=== PATIENT | female | born 1955 | race Caucasian/White ===

== ENCOUNTER → 2016-10-11 | Outpatient (REF) | payer MEDICARE, MEDICAID ==
[~2016-10-11] MED LIST: ASPI81TA83 OR; IBUP800T OR; ROSU10TA OR; VICO5TAB OR
[2016-10-11 14:03] LABS: ALBUMIN 3.7 GM/DL (3.2-5.2); ALBUMIN/GLOBULIN RATIO 1.19 (1.00-1.93); ALKALINE PHOSPHATASE 103 U/L (45-117); ALT/SGPT 41 U/L (12-78); ANION GAP 8 MEQ/L (8-16); AST/SGOT 18 U/L (15-37); BILIRUBIN,TOTAL 0.5 MG/DL (0.2-1.0); BLOOD UREA NITROGEN 18 MG/DL (7-18); CALCIUM LEVEL 9.1 MG/DL (8.8-10.2); CARBON DIOXIDE LEVEL 30 MEQ/L (21-32); CHLORIDE LEVEL 105 MEQ/L (98-107); CREATININE FOR GFR 0.74 MG/DL (0.55-1.02); GLOMERULAR FILTRATION RATE > 60.0 (>45); GLUCOSE, FASTING 164 MG/DL (80-110); POTASSIUM SERUM 4.1 MEQ/L (3.5-5.1); SODIUM LEVEL 143 MEQ/L (136-145); TOTAL PROTEIN 6.8 GM/DL (6.4-8.2)
== END ==
LOC: M LABDRAW1 13:31
PROVIDERS: ATTEND Family Medicine
DX: R19.5 Other fecal abnormalities (principal); E11.9 Type 2 diabetes mellitus without complications
CPT/HCPCS: 36415; 80053; 82043; G0463

== ENCOUNTER → 2016-12-13 | Outpatient (REF) | payer MEDICARE, MEDICAID | LOC: M SFHCPLAZ 08:16 | PROVIDERS: ATTEND Family Medicine | DX: E11.9 Type 2 diabetes mellitus without complications (principal) ==

== ENCOUNTER → 2017-04-04 | Outpatient (REF) | payer MEDICARE, MEDICAID | LOC: M SFHCPLAZ 08:19 | PROVIDERS: ATTEND Family Medicine | DX: E11.9 Type 2 diabetes mellitus without complications (principal) ==

== ENCOUNTER → 2017-04-11 | Outpatient (REF) | payer MEDICARE, MEDICAID | LOC: M SFHCPLAZ 08:19 | PROVIDERS: ATTEND Family Medicine | DX: R53.83 Other fatigue (principal); E11.9 Type 2 diabetes mellitus without complications; R03.0 Elevated blood-pressure reading, without diagnosis of hypertension; R23.4 Changes in skin texture; Z79.4 Long term (current) use of insulin; Z79.84 Long term (current) use of oral hypoglycemic drugs | CPT/HCPCS: 36415; 82306; G0463 ==

== ENCOUNTER → 2017-07-24 | Outpatient (REF) | payer MEDICARE, MEDICAID | LOC: M SFHCPLAZ 08:21 | PROVIDERS: ATTEND Family Medicine | DX: R53.82 Chronic fatigue, unspecified (principal) | CPT/HCPCS: 36415; 82607; G0463 ==

== ENCOUNTER → 2017-11-07 | Outpatient (REF) | payer MEDICARE, MEDICAID ==
[2017-11-07 12:40] LABS: HEMATOCRIT 47.5 % (36.0-47.0); HEMOGLOBIN 14.7 g/dl (12.0-16.0); MEAN CORPUSCULAR HEMOGLOBIN 28.9 pg (27.0-33.0); MEAN CORPUSCULAR HGB CONC 30.9 g/dl (32.0-36.5); MEAN CORPUSCULAR VOLUME 93.5 fl (80.0-96.0); PLATELET COUNT, AUTOMATED 231 10^3/uL (150-450); RED BLOOD COUNT 5.08 10^6/uL (4.00-5.40); RED CELL DISTRIBUTION WIDTH 13.2 % (11.5-14.5); WHITE BLOOD COUNT 11.3 10^3/uL (4.0-10.0)
[2017-11-07 12:44] LABS: ALBUMIN 3.8 GM/DL (3.2-5.2); ALBUMIN/GLOBULIN RATIO 1.12 (1.00-1.93); ALKALINE PHOSPHATASE 100 U/L (45-117); ALT/SGPT 40 U/L (12-78); ANION GAP 6 MEQ/L (8-16); AST/SGOT 18 U/L (7-37); BILIRUBIN,TOTAL 0.4 MG/DL (0.2-1.0); BLOOD UREA NITROGEN 15 MG/DL (7-18); CARBON DIOXIDE LEVEL 30 MEQ/L (21-32); CHLORIDE LEVEL 106 MEQ/L (98-107); CREATININE FOR GFR 0.76 MG/DL (0.55-1.30); GLOMERULAR FILTRATION RATE > 60.0 (>45); GLUCOSE, FASTING 193 MG/DL (70-100); POTASSIUM SERUM 4.5 MEQ/L (3.5-5.1); SODIUM LEVEL 142 MEQ/L (136-145); TOTAL PROTEIN 7.2 GM/DL (6.4-8.2)
[2017-11-07 12:49] LABS: ESTIMATED AVERAGE GLUCOSE 163 MG/DL (60-110); HEMOGLOBIN A1c 7.3 %
[2017-11-07 12:55] LABS: INR 0.86; PROTHROMBIN TIME 11.8 SECONDS (12.4-14.5)
[2017-11-07 13:19] LABS: CREATININE, URINE 56.6 MG/DL; MALB URINE SIEMENS 43.5 MG/L; MAU/CREAT RATIO 76.8 MCG/MG (0.0-30.0)
== END ==
LOC: M SFHCPLAZ 08:50
DX: Z78.9 Other specified health status (principal); E11.9 Type 2 diabetes mellitus without complications; Z79.01 Long term (current) use of anticoagulants
CPT/HCPCS: 80053

== ENCOUNTER → 2017-12-11 | Outpatient (REF) | payer MEDICARE, MEDICAID ==
[2017-12-11 12:49] LABS: CREATININE, URINE 29.7 MG/DL; MALB URINE SIEMENS 31.2 MG/L
== END ==
LOC: M SFHCPLAZ 08:24
DX: R80.9 Proteinuria, unspecified (principal)
CPT/HCPCS: 82043

== ENCOUNTER → 2018-01-16 | Outpatient (CLI) | payer MEDICARE, MEDICAID | LOC: M RAD 10:44 | DX: M79.622 Pain in left upper arm (principal) | CPT/HCPCS: 73030 ==

== ENCOUNTER → 2018-02-04 | Outpatient (REF) | payer MEDICARE, MEDICAID ==
[2018-02-04 14:22] LABS: ANION GAP 8 MEQ/L (8-16); BLOOD UREA NITROGEN 21 MG/DL (7-18); CALCIUM LEVEL 9.1 MG/DL (8.8-10.2); CARBON DIOXIDE LEVEL 27 MEQ/L (21-32); CHLORIDE LEVEL 104 MEQ/L (98-107); CREATININE FOR GFR 0.86 MG/DL (0.55-1.30); GLOMERULAR FILTRATION RATE > 60.0 (>45); GLUCOSE, FASTING 214 MG/DL (70-100); POTASSIUM SERUM 4.8 MEQ/L (3.5-5.1); SODIUM LEVEL 139 MEQ/L (136-145)
[2018-02-04 14:23] LABS: ESTIMATED AVERAGE GLUCOSE 189 MG/DL (60-110); HEMOGLOBIN A1c 8.2 %
== END ==
LOC: M SFHCPLAZ 08:28
DX: E11.9 Type 2 diabetes mellitus without complications (principal); I10 Essential (primary) hypertension
CPT/HCPCS: 83036

== ENCOUNTER 2018-02-17 08:56 | Outpatient (RCR) | payer MEDICARE, MEDICAID | END 2018-03-14 | LOC: M PT 08:56 | DX: Z51.89 Encounter for other specified aftercare (principal); M25.512 Pain in left shoulder | CPT/HCPCS: 97110; 97140 ==

== ENCOUNTER → 2018-02-20 | Outpatient (REF) | payer MEDICARE, MEDICAID ==
[2018-02-20 11:18] LABS: ANION GAP 8 MEQ/L (8-16); BLOOD UREA NITROGEN 16 MG/DL (7-18); CALCIUM LEVEL 9.1 MG/DL (8.8-10.2); CARBON DIOXIDE LEVEL 27 MEQ/L (21-32); CHLORIDE LEVEL 106 MEQ/L (98-107); CREATININE FOR GFR 0.87 MG/DL (0.55-1.30); GLOMERULAR FILTRATION RATE > 60.0 (>45); GLUCOSE, FASTING 175 MG/DL (70-100); POTASSIUM SERUM 4.7 MEQ/L (3.5-5.1); SODIUM LEVEL 141 MEQ/L (136-145)
== END ==
LOC: M SFHCPLAZ 08:04
DX: E11.9 Type 2 diabetes mellitus without complications (principal)
CPT/HCPCS: 80048

== ENCOUNTER 2018-04-04 23:07 | Emergency (ER) | payer MEDICARE, MEDICAID ==
[2018-04-04] MEDS ORDERED: ADENOSINE 6MG/2ML INJECTION (J0153) As Ordered ×2 (23:13→23:18)
[2018-04-04] MEDS ORDERED: METOPROLOL 5 MG/5 ML VIAL As Ordered (23:17)
[2018-04-04] MEDS: ADENOSINE 6MG/2ML INJECTION (J0153) IV ×2 (23:17→23:20)
[2018-04-04] MEDS: ONDANSETRON 4MG/2ML VIAL (J2405) IV ×2 (23:21→23:45)
[2018-04-04] MEDS: NS 1,000 ML IV (23:22)
[2018-04-04] MEDS: METOPROLOL 5 MG/5 ML VIAL IV (23:22)
[2018-04-04] MEDS ORDERED: MORPHINE 2 MG/ML 1ML SYRINGE (J2270) As Ordered (23:29)
[2018-04-04] MEDS ORDERED: ONDANSETRON 4MG/2ML VIAL (J2405) As Ordered (23:31)
[2018-04-04] MEDS: MORPHINE 2 MG/ML 1ML SYRINGE (J2270) IV (23:35)
[2018-04-04] MEDS: CLOPIDOGREL 300 MG TAB (PLAVIX) PO (23:40)
[2018-04-04] MEDS: HEPARIN SOD (PORCINE) 5000 UNITS/ML VIAL IV (23:40)
[2018-04-04] MEDS: ASPIRIN 81 MG CHEW TABLET PO (23:45)
[2018-04-04] MEDS ORDERED: MORPHINE 2 MG/ML 1ML SYRINGE (J2270) IV (23:45)
[2018-04-04] MEDS: TENECTEPLASE 50 MG KIT (TNKase)(J3101) IV (23:48)
[2018-04-04 23:52] LABS: INR 0.95; PROTHROMBIN TIME 12.8 SECONDS (12.1-14.4)
[2018-04-04] MEDS: HEPARIN DRIP 25,000 UNITS in APPROPRIATE DILUENT 1 EA IV (23:52)
[2018-04-04 23:53] LABS: PARTIAL THROMBOPLASTIN TIME 26.5 SECONDS (25.4-37.6)
[2018-04-04] MEDS ORDERED: dexameTHASONE 20 MG/5 ML VIAL (J1100) As Ordered (23:59)
[2018-04-04] MEDS ORDERED: diphenhydrAMINE INJ 50MG/ML VIAL (J1200) As Ordered (23:59)
[2018-04-05] MEDS: diphenhydrAMINE INJ 50MG/ML VIAL (J1200) IV (00:02)
[2018-04-05] MEDS: dexameTHASONE 20 MG/5 ML VIAL (J1100) IV (00:03)
[2018-04-05 00:11] LABS: HEMATOCRIT 54.3 % (36.0-47.0); HEMOGLOBIN 17.2 g/dl (12.0-15.5); MEAN CORPUSCULAR HEMOGLOBIN 29.4 pg (27.0-33.0); MEAN CORPUSCULAR HGB CONC 31.7 g/dl (32.0-36.5); MEAN CORPUSCULAR VOLUME 92.7 fl (80.0-96.0); PLATELET COUNT, AUTOMATED 285 10^3/uL (150-450); RED BLOOD COUNT 5.86 10^6/uL (4.00-5.40); RED CELL DISTRIBUTION WIDTH 13.2 % (11.5-14.5)
[2018-04-05 00:16] LABS: ADD MANUAL DIFFER YES; DIFF SLIDE NUMBER 163; POSITIVE DIFF POS FLAG; WHITE BLOOD COUNT 12.7 10^3/uL (4.0-10.0)
[2018-04-05 00:32] LABS: LYMPHOCYTES 45 % (16-52); MONOCYTES 5 % (0-8); NEUTROPHILS 50 % (35-75); PLATELET ESTIMATE NORMAL (NORMAL)
[2018-04-05] MEDS ORDERED: ISOVUE-370 76% 100ML VIAL (Q9967) As Ordered (00:34)
[2018-04-05] MEDS: NOREPINEPHRINE BITARTRATE 8 MG in D5W 492 ML IV ×3 (00:45→01:42)
[2018-04-05] MEDS ORDERED: NOREPINEPHRINE BITARTRATE 8 MG in D5W 492 ML IV (00:45)
[2018-04-05 01:27] LABS: BLOOD UREA NITROGEN 18 MG/DL (7-18); CREATININE FOR GFR 1.39 MG/DL (0.55-1.30); GLOMERULAR FILTRATION RATE 40.8 (>45); GLUCOSE, FASTING 434 MG/DL (70-100)
[2018-04-05 01:28] LABS: ANION GAP 12 MEQ/L (8-16); CALCIUM LEVEL 8.2 MG/DL (8.8-10.2); CARBON DIOXIDE LEVEL 22 MEQ/L (21-32); CHLORIDE LEVEL 104 MEQ/L (98-107); CK-MB VALUE MASS 16.1 NG/ML (<3.6); CPK CREATINE PHOSPHOKINASE 240 U/L (26-192); POTASSIUM SERUM 4.5 MEQ/L (3.5-5.1); SODIUM LEVEL 138 MEQ/L (136-145)
[2018-04-05 01:29] LABS: TROPONIN I 2.74 NG/ML (< 0.10)
[2018-04-05] MEDS: HumuLIN R (REGULAR) INSULIN (NovoLIN R) **100U/ML** PER UNIT IV (01:44)
[2018-04-05 02:01] LABS: BEDSIDE GLUCOSE 451 MG/DL (80-115)
[2018-04-05] MEDS ORDERED: METAL LOCK LOOP XX (02:14)
== END 2018-04-05 02:53 | disposition short-term general hospital (02) ==
LOC: M ED 23:07
DX: I21.3 ST elevation (STEMI) myocardial infarction of unspecified site (principal); I47.1 Supraventricular tachycardia; R06.02 Shortness of breath; E11.9 Type 2 diabetes mellitus without complications; I10 Essential (primary) hypertension; Z88.8 Allergy status to other drugs, medicaments and biological substances; Z88.2 Allergy status to sulfonamides; Z79.899 Other long term (current) drug therapy; Z79.82 Long term (current) use of aspirin; Z79.84 Long term (current) use of oral hypoglycemic drugs
CPT/HCPCS: J1200

== ENCOUNTER 2018-05-12 08:48 | Emergency (ER) | payer MEDICARE, MEDICAID ==
[2018-05-12 10:00] LABS: BASO # 0.1 10^3/uL (0.0-0.2); BASO % 0.7 % (0.0-1.0); EOS # 0.4 10^3/uL (0.0-0.50); EOS % 4.6 % (0.0-3.0); HEMATOCRIT 41.4 % (36.0-47.0); HEMOGLOBIN 13.2 g/dl (12.0-15.5); IMMATURE GRANULOCYTE % 0.2 % (0-3.0); LYMPH # 2.4 10^3/uL (1.5-4.5); LYMPH % 25.5 % (24.0-44.0); MEAN CORPUSCULAR HEMOGLOBIN 28.9 pg (27.0-33.0); MEAN CORPUSCULAR HGB CONC 31.9 g/dl (32.0-36.5); MEAN CORPUSCULAR VOLUME 90.8 fl (80.0-96.0); MONO # 0.6 10^3/uL (0.0-0.8); MONO % 6.8 % (0.0-5.0); NEUTROPHILS # 5.9 10^3/uL (1.8-7.7); NEUTROPHILS % 62.2 % (36.0-66.0); PLATELET COUNT, AUTOMATED 201 10^3/uL (150-450); RED BLOOD COUNT 4.56 10^6/uL (4.00-5.40); RED CELL DISTRIBUTION WIDTH 13.3 % (11.5-14.5); WHITE BLOOD COUNT 9.5 10^3/uL (4.0-10.0)
[2018-05-12 10:04] LABS: INR 0.96; PROTHROMBIN TIME 12.9 SECONDS (12.1-14.4)
[2018-05-12 10:11] LABS: ALBUMIN 3.5 GM/DL (3.2-5.2); ALBUMIN/GLOBULIN RATIO 1.03 (1.00-1.93); ALKALINE PHOSPHATASE 101 U/L (45-117); ALT/SGPT 40 U/L (12-78); ANION GAP 8 MEQ/L (8-16); AST/SGOT 16 U/L (7-37); BILIRUBIN,DIRECT 0.1 MG/DL (0.0-0.2); BILIRUBIN,TOTAL 0.5 MG/DL (0.2-1.0); BLOOD UREA NITROGEN 15 MG/DL (7-18); CALCIUM LEVEL 8.9 MG/DL (8.8-10.2); CARBON DIOXIDE LEVEL 28 MEQ/L (21-32); CHLORIDE LEVEL 107 MEQ/L (98-107); CPK CREATINE PHOSPHOKINASE 100 U/L (26-192); CREATININE FOR GFR 0.67 MG/DL (0.55-1.30); GLOMERULAR FILTRATION RATE > 60.0 (>45); GLUCOSE, FASTING 175 MG/DL (70-100); LIPASE 72 U/L (73-393); POTASSIUM SERUM 4.2 MEQ/L (3.5-5.1); SODIUM LEVEL 143 MEQ/L (136-145); TOTAL PROTEIN 6.9 GM/DL (6.4-8.2); TROPONIN I < 0.02 NG/ML (< 0.10)
[2018-05-12 10:17] LABS: NT-PRO BNP 761 PG/ML (<125)
[2018-05-12] MEDS: ONDANSETRON 4MG/2ML VIAL (J2405) IV (10:29)
[2018-05-12] MEDS: MORPHINE 4 MG/ML 1ML VIAL/SYRINGE (J2270) IV (10:30)
[2018-05-12] MEDS ORDERED: METAL LOCK LOOP XX (11:18)
[2018-05-12 15:35] LABS: CPK CREATINE PHOSPHOKINASE 92 U/L (26-192); TROPONIN I < 0.02 NG/ML (< 0.10)
[2018-05-12 15:36] LABS: CK-MB VALUE MASS 2.1 NG/ML (<3.6); MB/CK RELATIVE INDEX 2.28 (< OR =4)
== END 2018-05-12 16:03 | disposition home or self-care (01) ==
LOC: M ED 08:48
DX: R07.89 Other chest pain (principal); R05 Cough; R11.0 Nausea; E11.9 Type 2 diabetes mellitus without complications; I10 Essential (primary) hypertension; I25.2 Old myocardial infarction; Z88.2 Allergy status to sulfonamides; Z88.5 Allergy status to narcotic agent; Z88.8 Allergy status to other drugs, medicaments and biological substances; F17.210 Nicotine dependence, cigarettes, uncomplicated
CPT/HCPCS: J2405

== ENCOUNTER → 2018-11-16 | Outpatient (REF) | payer MEDICARE, MEDICAID ==
[~2018-11-16] MED LIST changes: -ASPI81TA83 OR; +ASPI81TA83 PO; +GLIP10TA18 PO; -IBUP800T OR; +IBUP800T PO; +LISI10TA4 PO; +PATIENT COMMENTS; +PRAS10TA2; +SITA50TAB PO; -VICO5TAB OR; +VICO5TAB PO
[2018-11-16 13:34] LABS: CREATININE, URINE 56.8 MG/DL; MALB URINE SIEMENS 23.8 MG/L; MAU/CREAT RATIO 41.9 MCG/MG (0.0-30.0)
[2018-11-16 13:43] LABS: ALBUMIN 3.6 GM/DL (3.2-5.2); ALT/SGPT 40 U/L (12-78); BILIRUBIN,TOTAL 0.6 MG/DL (0.2-1.0); BLOOD UREA NITROGEN 11 MG/DL (7-18); CALCIUM LEVEL 8.5 MG/DL (8.8-10.2); CARBON DIOXIDE LEVEL 23 MEQ/L (21-32); CHLORIDE LEVEL 109 MEQ/L (98-107); CHOLESTEROL LEVEL 141 MG/DL (<200); CREATININE FOR GFR 0.69 MG/DL (0.55-1.30); GLOMERULAR FILTRATION RATE > 60.0 (>45); GLUCOSE, FASTING 158 MG/DL (70-100); HDL CHOLESTEROL 38 MG/DL (>40); HEMOGLOBIN A1c 7.9 %; LDL CHOLESTEROL 77 MG/DL (<100); NON-HDL-C 103 MG/DL; POTASSIUM SERUM 4.1 MEQ/L (3.5-5.1); SODIUM LEVEL 142 MEQ/L (136-145); TOTAL PROTEIN 6.8 GM/DL (6.4-8.2); TRIGLYCERIDES LEVEL 128 MG/DL (<150)
== END ==
LOC: M LAB REF 12:07
PROVIDERS: ATTEND Family Medicine Addiction Medicine
DX: E11.65 Type 2 diabetes mellitus with hyperglycemia (principal)

== ENCOUNTER → 2019-02-23 | Outpatient (REF) | payer MEDICARE, MEDICAID ==
[~2019-02-23] MED LIST changes: +CRES10TA32 OR; -ROSU10TA OR
[2019-02-23 11:56] LABS: ALBUMIN 3.5 GM/DL (3.2-5.2); ALT/SGPT 36 U/L (12-78); BILIRUBIN,TOTAL 0.5 MG/DL (0.2-1.0); BLOOD UREA NITROGEN 27 MG/DL (7-18); CALCIUM LEVEL 8.5 MG/DL (8.8-10.2); CARBON DIOXIDE LEVEL 25 MEQ/L (21-32); CHLORIDE LEVEL 106 MEQ/L (98-107); CHOLESTEROL LEVEL 243 MG/DL (<200); CHOLESTEROL RISK RATIO 6.394 (<5); CREATININE FOR GFR 0.78 MG/DL (0.55-1.30); GLOMERULAR FILTRATION RATE > 60.0 (>45); GLUCOSE, FASTING 226 MG/DL (70-100); HDL CHOLESTEROL 38 MG/DL (>40); LDL CHOLESTEROL 134 MG/DL (<100); NON-HDL-C 205 MG/DL; POTASSIUM SERUM 4.6 MEQ/L (3.5-5.1); SODIUM LEVEL 140 MEQ/L (136-145); TRIGLYCERIDES LEVEL 357 MG/DL (<150)
[2019-02-23 13:11] LABS: HEMOGLOBIN A1c 7.9 %
== END ==
LOC: M LAB REF 10:57
PROVIDERS: ATTEND Family Medicine Addiction Medicine
DX: E11.65 Type 2 diabetes mellitus with hyperglycemia (principal)

== ENCOUNTER → 2019-06-02 | Outpatient (REF) | payer MEDICARE, MEDICAID ==
[2019-06-02 11:21] LABS: ALT/SGPT 53 U/L (12-78); BILIRUBIN,TOTAL 0.4 MG/DL (0.2-1.0); BLOOD UREA NITROGEN 13 MG/DL (7-18); CALCIUM LEVEL 9.2 MG/DL (8.8-10.2); CARBON DIOXIDE LEVEL 27 MEQ/L (21-32); CHLORIDE LEVEL 109 MEQ/L (98-107); CHOLESTEROL LEVEL 169 MG/DL (<200); CHOLESTEROL RISK RATIO 4.121 (<5); GLOMERULAR FILTRATION RATE > 60.0 (>45); GLUCOSE, FASTING 154 MG/DL (70-100); HDL CHOLESTEROL 41 MG/DL (>40); LDL CHOLESTEROL 85 MG/DL (<100); NON-HDL-C 128 MG/DL; POTASSIUM SERUM 4.5 MEQ/L (3.5-5.1); SODIUM LEVEL 143 MEQ/L (136-145); TRIGLYCERIDES LEVEL 216 MG/DL (<150)
[2019-06-02 11:32] LABS: HEMOGLOBIN A1c 7.3 %
== END ==
LOC: M LAB REF 10:58
PROVIDERS: ATTEND Nurse Practitioner Family
DX: E78.5 Hyperlipidemia, unspecified (principal); E11.65 Type 2 diabetes mellitus with hyperglycemia

== ENCOUNTER → 2019-11-17 | Outpatient (REF) | payer MEDICARE, MEDICAID ==
[2019-11-17 13:21] LABS: BASO # 0.1 10^3/uL (0.0-0.2); BASO % 0.8 % (0.0-1.0); EOS # 0.4 10^3/uL (0.0-0.5); EOS % 3.4 % (0.0-3.0); HEMATOCRIT 51.4 % (36.0-47.0); HEMOGLOBIN 16.9 g/dl (12.0-15.5); LYMPH # 2.9 10^3/uL (1.5-5.0); LYMPH % 24.7 % (24.0-44.0); MEAN CORPUSCULAR HEMOGLOBIN 30.8 pg (27.0-33.0); MEAN CORPUSCULAR HGB CONC 32.9 g/dl (32.0-36.5); MEAN CORPUSCULAR VOLUME 93.8 fl (80.0-96.0); MONO # 0.9 10^3/uL (0.0-0.8); MONO % 7.8 % (0.0-5.0); NEUTROPHILS # 7.3 10^3/uL (1.5-8.5); NEUTROPHILS % 62.8 % (36.0-66.0); PLATELET COUNT, AUTOMATED 219 10^3/uL (150-450); RED BLOOD COUNT 5.48 10^6/uL (4.00-5.40); WHITE BLOOD COUNT 11.6 10^3/uL (4.0-10.0)
[2019-11-17 13:37] LABS: ALBUMIN 4.1 GM/DL (3.2-5.2); ALT/SGPT 53 U/L (12-78); BILIRUBIN,TOTAL 0.6 MG/DL (0.2-1.0); BLOOD UREA NITROGEN 16 MG/DL (7-18); CALCIUM LEVEL 9.6 MG/DL (8.8-10.2); CARBON DIOXIDE LEVEL 28 MEQ/L (21-32); CHLORIDE LEVEL 106 MEQ/L (98-107); CHOLESTEROL LEVEL 162 MG/DL (<200); CHOLESTEROL RISK RATIO 3.951 (<5); GLOMERULAR FILTRATION RATE > 60.0 (>45); GLUCOSE, FASTING 150 MG/DL (70-100); HDL CHOLESTEROL 41 MG/DL (>40); LDL CHOLESTEROL 92 MG/DL (<100); NON-HDL-C 121 MG/DL; POTASSIUM SERUM 4.3 MEQ/L (3.5-5.1); SODIUM LEVEL 141 MEQ/L (136-145); TOTAL PROTEIN 7.4 GM/DL (6.4-8.2); TRIGLYCERIDES LEVEL 147 MG/DL (<150)
[2019-11-17 14:12] LABS: TOTAL 25(OH) VITAMIN D 20.4 NG/ML (30.0-100.0)
[2019-11-17 14:27] LABS: HEMOGLOBIN A1c 7.6 %
== END ==
LOC: M LAB REF 12:34
PROVIDERS: ATTEND Nurse Practitioner Family
DX: Z00.01 Encounter for general adult medical examination with abnormal findings (principal); E07.9 Disorder of thyroid, unspecified; E78.00 Pure hypercholesterolemia, unspecified

== ENCOUNTER → 2020-09-04 | Outpatient (REF) | payer MEDICARE, MEDICAID ==
[2020-09-04 13:42] LABS: BASO # 0.1 10^3/uL (0.0-0.2); EOS # 0.3 10^3/uL (0.0-0.5); EOS % 3.5 % (0.0-3.0); HEMATOCRIT 47.4 % (36.0-47.0); HEMOGLOBIN 14.9 g/dl (12.0-15.5); LYMPH # 2.3 10^3/uL (1.5-5.0); LYMPH % 23.4 % (24.0-44.0); MEAN CORPUSCULAR HEMOGLOBIN 30.1 pg (27.0-33.0); MEAN CORPUSCULAR HGB CONC 31.4 g/dl (32.0-36.5); MEAN CORPUSCULAR VOLUME 95.8 fl (80.0-96.0); MONO # 0.7 10^3/uL (0.0-0.8); MONO % 6.6 % (0.0-5.0); NEUTROPHILS # 6.4 10^3/uL (1.5-8.5); PLATELET COUNT, AUTOMATED 192 10^3/uL (150-450); RED BLOOD COUNT 4.95 10^6/uL (4.00-5.40); WHITE BLOOD COUNT 9.8 10^3/uL (4.0-10.0)
[2020-09-04 14:07] LABS: ALBUMIN 3.6 GM/DL (3.2-5.2); ALT/SGPT 41 U/L (12-78); BILIRUBIN,TOTAL 0.4 MG/DL (0.2-1.0); BLOOD UREA NITROGEN 16 MG/DL (7-18); CALCIUM LEVEL 8.8 MG/DL (8.8-10.2); CARBON DIOXIDE LEVEL 26 MEQ/L (21-32); CHLORIDE LEVEL 107 MEQ/L (98-107); CHOLESTEROL LEVEL 145 MG/DL (<200); CHOLESTEROL RISK RATIO 3.717 (<5); CREATININE FOR GFR 0.79 MG/DL (0.55-1.30); GLOMERULAR FILTRATION RATE > 60.0 (>45); GLUCOSE, FASTING 244 MG/DL (70-100); HDL CHOLESTEROL 39 MG/DL (>40); LDL CHOLESTEROL 72 MG/DL (<100); NON-HDL-C 106 MG/DL; POTASSIUM SERUM 4.6 MEQ/L (3.5-5.1); SODIUM LEVEL 140 MEQ/L (136-145); TOTAL PROTEIN 6.6 GM/DL (6.4-8.2); TRIGLYCERIDES LEVEL 170 MG/DL (<150)
[2020-09-04 14:28] LABS: TOTAL 25(OH) VITAMIN D 17.4 NG/ML (30.0-100.0)
== END ==
LOC: M LAB REF 12:33
PROVIDERS: ATTEND Nurse Practitioner Family
DX: E78.5 Hyperlipidemia, unspecified (principal); I10 Essential (primary) hypertension; Z86.39 Personal history of other endocrine, nutritional and metabolic disease; Z79.899 Other long term (current) drug therapy

== ENCOUNTER 2022-02-19 09:55 | Emergency (ER) | payer MEDICARE, MEDICAID ==
[~2022-02-19] VITALS: Ht 160 cm; Wt 76.9 kg
[~2022-02-19 09:55] MED LIST changes: +LISI10TA22 PO; -LISI10TA4 PO
[2022-02-19] MEDS ORDERED: LOSA25TA13 PO (10:17)
[2022-02-19] MEDS ORDERED: SIMV40TA20 (10:17)
[2022-02-19] MEDS ORDERED: JARD1TAB PO (10:17)
[2022-02-19] MEDS ORDERED: WEIGHT LOSS MED (10:17)
[2022-02-19] MEDS ORDERED: GLIP10TA PO (10:17)
[2022-02-19 13:03] LABS: BASO # 0.1 10^3/uL (0.0-0.2); BASO % 1.2 % (0.0-1.0); EOS # 0.1 10^3/uL (0.0-0.5); EOS % 1.5 % (0.0-3.0); HEMATOCRIT 50.7 % (36.0-47.0); HEMOGLOBIN 16.9 g/dl (12.0-15.5); LYMPH # 2.1 10^3/uL (1.5-5.0); LYMPH % 26.2 % (24.0-44.0); MEAN CORPUSCULAR HGB CONC 33.3 g/dl (32.0-36.5); MEAN CORPUSCULAR VOLUME 90.1 fl (80.0-96.0); MONO # 1.1 10^3/uL (0.0-0.8); MONO % 13.1 % (2.0-8.0); NEUTROPHILS # 4.7 10^3/uL (1.5-8.5); NEUTROPHILS % 57.6 % (36.0-66.0); PLATELET COUNT, AUTOMATED 258 10^3/uL (150-450); RED BLOOD COUNT 5.63 10^6/uL (4.00-5.40); WHITE BLOOD COUNT 8.1 10^3/uL (4.0-10.0)
[2022-02-19] MEDS ORDERED: NS 1,000 ML IV ONE (13:10)
[2022-02-19] MEDS ORDERED: SIMV40TA20 PO (13:22)
[2022-02-19 14:26] LABS: CALCIUM LEVEL 9.7 MG/DL (8.8-10.2); CREATININE FOR GFR 1.12 MG/DL (0.55-1.30); GLOMERULAR FILTRATION RATE 51.7 (>45); POTASSIUM SERUM 3.5 MEQ/L (3.5-5.1)
[2022-02-19] MEDS ORDERED: LOPE1CAP5 PO (15:57)
[2022-02-19] MEDS ORDERED: LOPERAMIDE 2 MG CAPLET PO ONE (16:05)
[2022-02-19 16:18] VITALS: BP 147/75
== END 2022-02-19 16:22 | disposition home or self-care (01) ==
LOC: M ED 09:55
DX: R19.7 Diarrhea, unspecified (principal); E86.0 Dehydration; R11.2 Nausea with vomiting, unspecified; M54.9 Dorsalgia, unspecified; G89.29 Other chronic pain; K44.9 Diaphragmatic hernia without obstruction or gangrene; F17.200 Nicotine dependence, unspecified, uncomplicated

== ENCOUNTER 2022-02-21 06:20 | Emergency (ER) | payer MEDICARE, MEDICAID ==
[~2022-02-21] VITALS: Ht 160 cm; Wt 75.0 kg
[~2022-02-21 06:20] MED LIST changes: +GLIP10TA PO; +JARD1TAB PO; +LOPE1CAP5 PO; +LOSA25TA13 PO; +SIMV40TA20; +SIMV40TA20 PO; +WEIGHT LOSS MED
[2022-02-21 07:01] LABS: HEMATOCRIT 49.7 % (36.0-47.0); HEMOGLOBIN 16.3 g/dl (12.0-15.5); MEAN CORPUSCULAR HGB CONC 32.8 g/dl (32.0-36.5); MEAN CORPUSCULAR VOLUME 91.4 fl (80.0-96.0); PLATELET COUNT, AUTOMATED 263 10^3/uL (150-450); RED BLOOD COUNT 5.44 10^6/uL (4.00-5.40); WHITE BLOOD COUNT 9.2 10^3/uL (4.0-10.0)
[2022-02-21 07:34] LABS: ALT/SGPT 20 U/L (12-78); BILIRUBIN,DIRECT 0.2 MG/DL (0.0-0.2); BILIRUBIN,TOTAL 0.6 MG/DL (0.2-1.0); BLOOD UREA NITROGEN 13 MG/DL (7-18); CALCIUM LEVEL 9.1 MG/DL (8.8-10.2); CARBON DIOXIDE LEVEL 16 MEQ/L (21-32); CHLORIDE LEVEL 113 MEQ/L (98-107); CREATININE FOR GFR 0.81 MG/DL (0.55-1.30); GLOMERULAR FILTRATION RATE > 60.0 (>45); GLUCOSE, FASTING 201 MG/DL (70-100); LIPASE 33 U/L (73-393); POTASSIUM SERUM 3.6 MEQ/L (3.5-5.1); SODIUM LEVEL 142 MEQ/L (136-145); TOTAL PROTEIN 6.3 GM/DL (6.4-8.2)
[2022-02-21] MEDS ORDERED: NS 1,000 ML IV ONE (07:35)
[2022-02-21] MEDS ORDERED: ISOVUE-370 76% 100ML VIAL As Ordered ONE (07:48)
[2022-02-21 07:51] LABS: ATYPICAL LYMPH 2 % (0-5); EOSINOPHILS 1 % (0-3); LYMPHOCYTES 20 % (16-44); MONOCYTES 20 % (0-5); NEUTROPHILS 32 % (28-66); PLATELET ESTIMATE NORMAL (NORMAL)
[2022-02-21] MEDS ORDERED: PRED10TA2 PO (10:28)
[2022-02-21] MEDS ORDERED: PANT40TA29 PO (10:28)
[2022-02-21] MEDS ORDERED: ONDA4TAB6 PO (10:28)
[2022-02-21 10:44] VITALS: BP 128/64
== END 2022-02-21 11:03 | disposition home or self-care (01) ==
LOC: M ED 06:20
DX: K52.9 Noninfective gastroenteritis and colitis, unspecified (principal); R53.1 Weakness; K44.9 Diaphragmatic hernia without obstruction or gangrene; M54.9 Dorsalgia, unspecified; Z20.818 Contact with and (suspected) exposure to other bacterial communicable diseases; F17.210 Nicotine dependence, cigarettes, uncomplicated; Z88.8 Allergy status to other drugs, medicaments and biological substances; Z88.2 Allergy status to sulfonamides; Z79.899 Other long term (current) drug therapy; Z79.84 Long term (current) use of oral hypoglycemic drugs
CPT/HCPCS: 36415; 74177; 80048; 80076; 83690; 85025; 87507; 96360; 96361; 99284; Q9967

== ENCOUNTER 2022-03-29 17:00 | Emergency (ER) | payer MEDICARE, MEDICAID ==
[~2022-03-29 17:00] MED LIST changes: +ONDA4TAB6 PO; +PANT40TA29 PO; +PRED10TA2 PO
[2022-03-29 17:10] VITALS: BP 125/63
[2022-03-29] MEDS ORDERED: BOOSTRIX/ADACEL VACCINE (DIPHTH/PERTUSS/ACELL/TETANUS) 0.5ML SYR IM.IMMUN ONE (17:50)
== END 2022-03-29 21:25 | disposition home or self-care (01) ==
LOC: M ED 17:00
DX: S00.01XA Abrasion of scalp, initial encounter (principal); S00.03XA Contusion of scalp, initial encounter; W18.39XA Other fall on same level, initial encounter; Y92.410 Unspecified street and highway as the place of occurrence of the external cause; F10.129 Alcohol abuse with intoxication, unspecified; E11.9 Type 2 diabetes mellitus without complications; I50.9 Heart failure, unspecified; I25.10 Atherosclerotic heart disease of native coronary artery without angina pectoris; Z87.19 Personal history of other diseases of the digestive system; Z79.899 Other long term (current) drug therapy; Z79.84 Long term (current) use of oral hypoglycemic drugs; Z88.1 Allergy status to other antibiotic agents; Z88.2 Allergy status to sulfonamides; Z88.8 Allergy status to other drugs, medicaments and biological substances; F17.200 Nicotine dependence, unspecified, uncomplicated

== ENCOUNTER 2022-05-25 07:14 | Emergency (ER) | payer MEDICARE, MEDICAID ==
[~2022-05-25] VITALS: Ht 162.6 cm; Wt 76.9 kg
[2022-05-25 07:15] VITALS: BP 165/70
[2022-05-25] MEDS ORDERED: AMOX875T2 PO (08:11)
[2022-05-25] MEDS ORDERED: ACETAMINOPHEN 500 MG TAB PO ONE (08:20)
== END 2022-05-25 08:27 | disposition home or self-care (01) ==
LOC: M ED 07:14
DX: K04.7 Periapical abscess without sinus (principal); I10 Essential (primary) hypertension; E11.9 Type 2 diabetes mellitus without complications; E78.5 Hyperlipidemia, unspecified; I25.2 Old myocardial infarction; Z95.5 Presence of coronary angioplasty implant and graft; F17.200 Nicotine dependence, unspecified, uncomplicated; Z88.2 Allergy status to sulfonamides; Z88.8 Allergy status to other drugs, medicaments and biological substances; Z79.899 Other long term (current) drug therapy; Z79.84 Long term (current) use of oral hypoglycemic drugs

== ENCOUNTER 2022-11-16 20:22 | Observation (INO) | payer MEDICARE, MEDICAID ==
[~2022-11-16] VITALS: Ht 157.5 cm; Wt 76.4 kg
[~2022-11-16 20:22] MED LIST changes: +AMOX875T2 PO
[2022-11-16] MEDS ORDERED: ACET-683 PO (20:30)
[2022-11-16] MEDS ORDERED: AMPICILLIN SOD/SULBACTAM SOD 3 GM in D5W MINI-BAG PLUS 100 ML IV ONE (21:15)
[2022-11-16] MEDS ORDERED: NS 1,000 ML IV ONE (21:15)
[2022-11-16] MEDS ORDERED: ISOVUE-370 76% 100ML VIAL As Ordered ONE (21:17)
[2022-11-16 21:26] LABS: BASO # 0.1 10^3/uL (0.0-0.2); BASO % 0.5 % (0.0-1.0); EOS # 0.4 10^3/uL (0.0-0.5); EOS % 2.3 % (0.0-3.0); HEMATOCRIT 44.8 % (36.0-47.0); HEMOGLOBIN 14.9 g/dl (12.0-15.5); LYMPH # 2.4 10^3/uL (1.5-5.0); LYMPH % 13.7 % (24.0-44.0); MEAN CORPUSCULAR HEMOGLOBIN 30.7 pg (27.0-33.0); MEAN CORPUSCULAR HGB CONC 33.3 g/dl (32.0-36.5); MEAN CORPUSCULAR VOLUME 92.4 fl (80.0-96.0); MONO # 1.3 10^3/uL (0.0-0.8); MONO % 7.5 % (2.0-8.0); NEUTROPHILS # 12.9 10^3/uL (1.5-8.5); NEUTROPHILS % 75.4 % (36.0-66.0); PLATELET COUNT, AUTOMATED 287 10^3/uL (150-450); RED BLOOD COUNT 4.85 10^6/uL (4.00-5.40); WHITE BLOOD COUNT 17.2 10^3/uL (4.0-10.0)
[2022-11-16] MEDS ORDERED: ONDANSETRON 4MG 2ML VIAL As Ordered ONE (22:05)
[2022-11-16] MEDS ORDERED: ONDANSETRON 4MG 2ML VIAL IV ONE (22:05)
[2022-11-16] MEDS ORDERED: diphenhydrAMINE 50MG/ML VIAL IV ONE (22:15)
[2022-11-16] MEDS ORDERED: CEPACOL LOZENGE PO PRN (23:55)
[2022-11-16] MEDS ORDERED: GLUCOSE 4GM CHEW TABLET PO PRN (23:55)
[2022-11-16] MEDS ORDERED: DEXTROSE 50% 50ML SYRINGE IV PRN (23:55)
[2022-11-16] MEDS ORDERED: LORazepam 2 MG TAB PO PRN (23:55)
[2022-11-16] MEDS ORDERED: GLUCAGON INJ 1MG VIAL SC PRN (23:55)
[2022-11-17 00:06] LABS: RSV AMPLIFICATION NEGATIVE (NEGATIVE)
[2022-11-17] MEDS ORDERED: LOSA50TA28 PO (00:17)
[2022-11-17] MEDS ORDERED: JARD1TAB3 PO (00:17)
[2022-11-17] MEDS ORDERED: HOME MED LIST COMPLETE! XX SCH (00:20)
[2022-11-17 01:05] VITALS: BP 129/63
[2022-11-17] MEDS: THIAMINE 100 MG TAB PO SCH ×3 (01:33→20:28)
[2022-11-17] MEDS: ACETAMINOPHEN TAB 650MG DOSE (2X325MG) PO PRN ×3 (01:36→20:27)
[2022-11-17] MEDS ORDERED: AZITHROMYCIN INJ 500 MG, VIAL MATE ADAPTER 1 EACH in NS 250 ML IV SCH ×2 (05:00→09:00)
[2022-11-17 06:00] VITALS: BP 127/62
[2022-11-17] MEDS: INSULIN LISPRO (NovoLOG) PER UNIT SC SCH ×4 (07:30→20:29)
[2022-11-17 07:59] LABS: BASO # 0.1 10^3/uL (0.0-0.2); BASO % 0.5 % (0.0-1.0); HEMATOCRIT 47.1 % (36.0-47.0); HEMOGLOBIN 15.1 g/dl (12.0-15.5); LYMPH # 1.3 10^3/uL (1.5-5.0); LYMPH % 6.7 % (24.0-44.0); MEAN CORPUSCULAR HEMOGLOBIN 30.1 pg (27.0-33.0); MEAN CORPUSCULAR HGB CONC 32.1 g/dl (32.0-36.5); MEAN CORPUSCULAR VOLUME 93.8 fl (80.0-96.0); MONO # 0.3 10^3/uL (0.0-0.8); MONO % 1.4 % (2.0-8.0); NEUTROPHILS # 17.2 10^3/uL (1.5-8.5); NEUTROPHILS % 90.5 % (36.0-66.0); PLATELET COUNT, AUTOMATED 285 10^3/uL (150-450); RED BLOOD COUNT 5.02 10^6/uL (4.00-5.40)
[2022-11-17 08:29] LABS: ALBUMIN 3.3 G/DL (3.2-5.2); ALKALINE PHOSPHATASE 120 U/L (46-116); ALT/SGPT 20 U/L (7.0-40); AST/SGOT 11 U/L (<34); BILIRUBIN,TOTAL 0.6 MG/DL (0.3-1.2); BLOOD UREA NITROGEN 17 MG/DL (9-23); CARBON DIOXIDE LEVEL 27 MMOL/L (20-31); CHLORIDE LEVEL 106 MMOL/L (98-107); CREATININE FOR GFR 0.61 MG/DL (0.55-1.30); GLOMERULAR FILTRATION RATE > 60.0 (>45); GLUCOSE, FASTING 178 MG/DL (74-106); MAGNESIUM LEVEL 2.1 MG/DL (1.8-2.4); POTASSIUM SERUM 4.5 MMOL/L (3.5-5.1); SODIUM LEVEL 142 MMOL/L (136-145); TOTAL PROTEIN 6.7 G/DL (5.7-8.2)
[2022-11-17] MEDS: SIMVASTATIN 40 MG TAB PO SCH (09:00)
[2022-11-17] MEDS: LOSARTAN 50MG TABLET PO SCH (09:00)
[2022-11-17] MEDS: ENOXAPARIN 40MG/0.4ML SYRINGE (J1650 PER 10MG) SC SCH (09:00)
[2022-11-17] MEDS: MULTIVITAMINS/MINERALS THERAP 1 TAB PO SCH (09:06)
[2022-11-17] MEDS: FOLIC ACID 1MG TAB PO SCH (09:06)
[2022-11-17 14:00] VITALS: BP 135/79
[2022-11-17 22:00] VITALS: BP_SYST 118; BP_SYST 141; BP_DIAS 63; BP_DIAS 67
[2022-11-18 06:00] VITALS: BP 120/61
[2022-11-18] MEDS: ACETAMINOPHEN TAB 650MG DOSE (2X325MG) PO PRN ×3 (07:02→21:13)
[2022-11-18 07:04] LABS: BASO # 0.1 10^3/uL (0.0-0.2); BASO % 0.6 % (0.0-1.0); EOS # 0.2 10^3/uL (0.0-0.5); EOS % 1.2 % (0.0-3.0); HEMATOCRIT 41.3 % (36.0-47.0); LYMPH % 21.9 % (24.0-44.0); MEAN CORPUSCULAR HGB CONC 31.7 g/dl (32.0-36.5); MEAN CORPUSCULAR VOLUME 94.5 fl (80.0-96.0); MONO # 0.9 10^3/uL (0.0-0.8); MONO % 6.2 % (2.0-8.0); NEUTROPHILS # 9.5 10^3/uL (1.5-8.5); NEUTROPHILS % 69.3 % (36.0-66.0); PLATELET COUNT, AUTOMATED 246 10^3/uL (150-450); RED BLOOD COUNT 4.37 10^6/uL (4.00-5.40); WHITE BLOOD COUNT 13.7 10^3/uL (4.0-10.0)
[2022-11-18 07:05] LABS: HEMOGLOBIN 13.1 g/dl (12.0-15.5)
[2022-11-18 07:10] LABS: ALBUMIN 2.8 G/DL (3.2-5.2); ALKALINE PHOSPHATASE 97 U/L (46-116); ALT/SGPT 18 U/L (7.0-40); AST/SGOT 12 U/L (<34); BILIRUBIN,TOTAL 0.2 MG/DL (0.3-1.2); BLOOD UREA NITROGEN 27 MG/DL (9-23); CALCIUM LEVEL 8.6 MG/DL (8.3-10.6); CARBON DIOXIDE LEVEL 27 MMOL/L (20-31); CHLORIDE LEVEL 107 MMOL/L (98-107); CREATININE FOR GFR 0.69 MG/DL (0.55-1.30); GLOMERULAR FILTRATION RATE > 60.0 (>45); GLUCOSE, FASTING 246 MG/DL (74-106); MAGNESIUM LEVEL 2.1 MG/DL (1.8-2.4); POTASSIUM SERUM 4.9 MMOL/L (3.5-5.1); SODIUM LEVEL 140 MMOL/L (136-145)
[2022-11-18] MEDS: INSULIN LISPRO (NovoLOG) PER UNIT SC SCH ×5 (07:30→21:00)
[2022-11-18] MEDS: SIMVASTATIN 40 MG TAB PO SCH (08:57)
[2022-11-18] MEDS: FOLIC ACID 1MG TAB PO SCH (08:57)
[2022-11-18] MEDS: THIAMINE 100 MG TAB PO SCH ×2 (08:57→21:12)
[2022-11-18] MEDS: ENOXAPARIN 40MG/0.4ML SYRINGE (J1650 PER 10MG) SC SCH (08:57)
[2022-11-18] MEDS: LOSARTAN 50MG TABLET PO SCH (08:57)
[2022-11-18] MEDS: AZITHROMYCIN 250MG TABLET PO SCH (08:57)
[2022-11-18] MEDS: MULTIVITAMINS/MINERALS THERAP 1 TAB PO SCH (08:57)
[2022-11-18 09:21] LABS: TOTAL PROTEIN 5.8 G/DL (5.7-8.2)
[2022-11-18 14:00] VITALS: BP 102/68
[2022-11-18 20:00] VITALS: BP 143/68
[2022-11-18] MEDS ORDERED: CLOTRIMAZOLE 1% VAG CR 45 GM PV SCH (21:00)
[2022-11-19] MEDS ORDERED: CHLORASEPTIC SPRAY MT PRN (02:30)
[2022-11-19] MEDS: ACETAMINOPHEN TAB 650MG DOSE (2X325MG) PO PRN (03:32)
[2022-11-19 06:00] VITALS: BP 141/81
[2022-11-19 06:08] LABS: BASO # 0.1 10^3/uL (0.0-0.2); BASO % 0.8 % (0.0-1.0); EOS # 0.3 10^3/uL (0.0-0.5); EOS % 3.1 % (0.0-3.0); HEMATOCRIT 43.1 % (36.0-47.0); HEMOGLOBIN 13.2 g/dl (12.0-15.5); LYMPH # 2.8 10^3/uL (1.5-5.0); LYMPH % 25.9 % (24.0-44.0); MEAN CORPUSCULAR HEMOGLOBIN 29.3 pg (27.0-33.0); MEAN CORPUSCULAR HGB CONC 30.6 g/dl (32.0-36.5); MEAN CORPUSCULAR VOLUME 95.8 fl (80.0-96.0); MONO # 0.8 10^3/uL (0.0-0.8); NEUTROPHILS # 6.7 10^3/uL (1.5-8.5); NEUTROPHILS % 62.4 % (36.0-66.0); PLATELET COUNT, AUTOMATED 229 10^3/uL (150-450); WHITE BLOOD COUNT 10.8 10^3/uL (4.0-10.0)
[2022-11-19 06:40] LABS: ALBUMIN 2.9 G/DL (3.2-5.2); ALKALINE PHOSPHATASE 86 U/L (46-116); ALT/SGPT 23 U/L (7.0-40); AST/SGOT 16 U/L (<34); BILIRUBIN,TOTAL 0.2 MG/DL (0.3-1.2); BLOOD UREA NITROGEN 26 MG/DL (9-23); CALCIUM LEVEL 8.5 MG/DL (8.3-10.6); CARBON DIOXIDE LEVEL 29 MMOL/L (20-31); CHLORIDE LEVEL 107 MMOL/L (98-107); CREATININE FOR GFR 0.64 MG/DL (0.55-1.30); GLOMERULAR FILTRATION RATE > 60.0 (>45); GLUCOSE, FASTING 207 MG/DL (74-106); MAGNESIUM LEVEL 1.9 MG/DL (1.8-2.4); POTASSIUM SERUM 4.8 MMOL/L (3.5-5.1); SODIUM LEVEL 142 MMOL/L (136-145)
[2022-11-19] MEDS: SIMVASTATIN 40 MG TAB PO SCH (08:51)
[2022-11-19] MEDS: THIAMINE 100 MG TAB PO SCH ×2 (08:51→09:00)
[2022-11-19] MEDS: MULTIVITAMINS/MINERALS THERAP 1 TAB PO SCH ×2 (08:51→09:00)
[2022-11-19] MEDS: INSULIN LISPRO (NovoLOG) PER UNIT SC SCH ×2 (08:51→12:43)
[2022-11-19] MEDS: AZITHROMYCIN 250MG TABLET PO SCH (08:51)
[2022-11-19] MEDS: FOLIC ACID 1MG TAB PO SCH (08:51)
[2022-11-19] MEDS: ENOXAPARIN 40MG/0.4ML SYRINGE (J1650 PER 10MG) SC SCH ×2 (08:52→08:55)
[2022-11-19 08:54] VITALS: BP 142/72
[2022-11-19] MEDS: LOSARTAN 50MG TABLET PO SCH (08:54)
[2022-11-19] MEDS ORDERED: AZIT-12 PO (11:21)
[2022-11-19] MEDS ORDERED: ACET-683 PO (11:21)
[2022-11-19] MEDS ORDERED: CHLORSP MT (11:22)
[2022-11-19] MEDS ORDERED: DIFL150T PO (11:32)
[2022-11-19 12:58] LABS: HEMOGLOBIN A1c 8.4 % (4.0-6.0)
== END 2022-11-19 15:24 | disposition home or self-care (01) ==
LOC: EDBD 20:22 → M ED 20:22 → M ED INP 23:54 → M MSPAV 11-17 01:09
PROVIDERS: ADMIT Internal Medicine; ATTEND Internal Medicine Nephrology
DX: J02.0 Streptococcal pharyngitis (principal); B37.31 Acute candidiasis of vulva and vagina; R25.2 Cramp and spasm; R13.10 Dysphagia, unspecified; L29.9 Pruritus, unspecified; T36.0X5A Adverse effect of penicillins, initial encounter; E11.9 Type 2 diabetes mellitus without complications; I10 Essential (primary) hypertension; I25.10 Atherosclerotic heart disease of native coronary artery without angina pectoris; E78.5 Hyperlipidemia, unspecified; F10.10 Alcohol abuse, uncomplicated; Z79.899 Other long term (current) drug therapy; Z79.84 Long term (current) use of oral hypoglycemic drugs; Z88.2 Allergy status to sulfonamides; Z88.0 Allergy status to penicillin; Z88.8 Allergy status to other drugs, medicaments and biological substances; F17.210 Nicotine dependence, cigarettes, uncomplicated; Z98.61 Coronary angioplasty status
CPT/HCPCS: 31575; 36415; 70491; 80047; 80053; 83036; 83735; 85025; 86140; 87631; 87880; 96365; 96366; 96372; 96375; 99284; G0378; J0456; J1100; J1200; J1650; J1815; J2405; Q9967

== ENCOUNTER → 2023-06-30 | Outpatient (REF) | payer MEDICARE, MEDICAID ==
[~2023-06-30] MED LIST changes: +ACET-683 PO; +AZIT-12 PO; +CHLORSP MT; +DIFL150T PO; +JARD1TAB3 PO; +LOSA50TA28 PO
[2023-06-30 17:29] LABS: BACTERIA, URINE AUTO NEGATIVE (NEGATIVE); RBC, URINE AUTO 0 /HPF (0-3); SQUAMOUS EPITHELIAL CELL UR AU 3 /HPF (0-6); WBC, URINE AUTO 1 /HPF (0-3)
== END ==
LOC: M LAB REF 16:29
PROVIDERS: ATTEND Family Medicine Addiction Medicine
DX: R31.29 Other microscopic hematuria (principal)

== ENCOUNTER → 2025-04-07 | Outpatient (REF) | payer MEDICARE, MEDICAID ==
[~2025-04-07] MED LIST changes: +GLIP-320 PO; -GLIP10TA18 PO; +ONDA-282 PO; -ONDA4TAB6 PO
[2025-04-07 13:58] LABS: ALT/SGPT 37.0 U/L (7.0-40); AST/SGOT 24.0 U/L (<34); CALCIUM LEVEL 9.1 MG/DL (8.3-10.6); CARBON DIOXIDE LEVEL 26.0 MMOL/L (20-31); CHLORIDE LEVEL 104.0 MMOL/L (98-107); CHOLESTEROL LEVEL 151.0 MG/DL (<200); CHOLESTEROL RISK RATIO 3.45 (<5); CREATININE FOR GFR 0.85 MG/DL (0.55-1.30); GLOMERULAR FILTRATION RATE 73.7 (>39); LDL CHOLESTEROL 78.3 MG/DL (<100); NON-HDL-C 107.3 MG/DL; POTASSIUM SERUM 4.6 MMOL/L (3.5-5.1); SODIUM LEVEL 141.0 MMOL/L (136-145); TRIGLYCERIDES LEVEL 145.0 MG/DL (<150)
[2025-04-07 14:14] LABS: ESTIMATED AVERAGE GLUCOSE 249.0 MG/DL (60-110)
== END ==
LOC: M LAB REF 12:27
PROVIDERS: ATTEND Family Medicine Addiction Medicine
DX: E11.9 Type 2 diabetes mellitus without complications (principal)